=== PATIENT | female | born 1965 | race Hispanic/Latino ===

== ENCOUNTER 2019-05-06 22:27 | Emergency (ER) | payer OTHER ==
--- OUTSIDE RECORDS SUMMARY | 2019-05-06 22:31 | XMS REPORT ---
:1965 [facility] Address [address] [place] [address] Care Team Providers Name Role Phone Unavailable Unavailable Unavailable Payers Payer Name Policy Type Policy Number Effective Date Expiration Date Problems This patient has no known problems. Allergies, Adverse Reactions, Alerts Allergy Name Allergy Status Severity Reaction(s) Onset Inactive Treating Comments Type Date Date Clinician Penicillins DA Active U 05-31 00:00: 00 Sulfa DA Active U (Sulfonamide 2-17 Antibiotics) 00:00: 00 neomycin DA Active U 05-31 00:00: 00 trimethoprim DA Active SV 05-31 00:00: 00 amoxicillin DA Active SV 17 00:00: 00 Medications This patient has no known medications. Encounters Start End Encounter Admission Attending Care Care Encounter Date/Time Date/Time Type Type Clinicians Facility Department ID 2019-02-08 2019-02-08 Emergency E [facility] 23:38:00 23:38:00 2019-02-07 2019-02-07 Outpatient E [facility] MED 7502 10:27:00 10:27:00 Results Test Description Test Time Test Comments Text Results Atomic Results Result Comments DRUGS OF ABUSE SCREEN UR 2019-02-05 11:49:00 Test Item Value Reference Range Comments URN COCAINE (test code=COCAURN) NEGATIVE NEGATIVE URN CANNABINOIDS (test NEGATIVE NEGATIVE code=CANNABURN) URN AMPHETAMINE (test NEGATIVE NEGATIVE code=AMPHETURN) URN BARBITURATE (test NEGATIVE NEGATIVE code=BARBITURN) URN BENZODIAZEPINE (test NEGATIVE NEGATIVE Cut-off value:200 ng/mL code=BENZOURN) URN OPIATES (test code=OPIATURN) NEGATIVE NEGATIVE Cut-off value:2000 ng/mL URN PHENCYCLIDINE (PCP) (test NEGATIVE NEGATIVE Cutoffs:Barbiturates code=PHENCURN) 200 ng/mLBenzodiazepines 200 ng/mLTHC Cannabinoids 50 ng/mLOpiates(Morphine) 2000 ng/mLAmphetamine 1000 ng/mLCocaine 300 ng/mLPCP phencyclidine 25 ng/mL Unconfirmed screening results shouldnot be used for non-medical purposes. UA RFLX MICR CULT IF [id number] 11:40:00 Test Item Value Reference Range Comments UA COLOR (test code=COLU) STRAW YEL/STRAW UA APPEARANCE (test code=APPU) CLEAR CLEAR UA GLUCOSE DIPSTICK (test code=DGLUU) NEGATIVE NEGATIVE UA BILIRUBIN DIPSTICK (test code=BILU) NEGATIVE NEGATIVE UA KETONE DIPSTICK (test code=KETU) NEGATIVE NEGATIVE UA SPECIFIC GRAVITY (test code=SGU) 1.015 1.005-1.030 UA BLOOD DIPSTICK (test code=MOE) NEGATIVE NEGATIVE UA PH DIPSTICK (test code=OTIS) 8.0 5.0-7.0 UA PROTEIN DIPSTICK (test code=PROU) NEGATIVE NEGATIVE UA UROBILINIOGEN DIPSTICK (test code=URO) 0.2 mg/dL 0.2-1.0 UA NITRITE DIPSTICK (test code=PEYTON) NEGATIVE NEGATIVE UA LEUKOCYTE ESTERASE DIPSTICK (test code=LEUU) NEGATIVE NEGATIVE UA WBC (test code=WBCU) 0-3 WBC/HPF 0-3 UA RBC (test code=RBCU) 0-1 RBC/HPF 0-3 UA WBC NO REFLEX (test code=WBCUCL) 0-3 WBC/HPF 0-3 UA BACTERIA (test code=BACU) TRACE /HPF NONE SEEN UA SQUAMOUS CELLS (test code=SQU) 6-10 /HPF NONE SEEN Indication for culture: Temperature > 100.4 FSpecimen Description: CLEAN CATCHB-TYPE NATRIURETIC [id number] 10:59:00 Test Item Value Reference Range Comments B-TYPE NATRIURETIC PEPTIDE (test code=BNP) 10.3 PG/ML 0-100 - XR ANKLE 3 + V [id number] 10:36:00 FAX: Melissa Barber [place]: St: REG FAX: Remberto Whitehead MD [phone] -- Name: ALESHA CRUZ [facility] : 1965 Age/S: 53/F [address] [place] [address] Unit #: [id number] Loc: [address] [address] Phys: Remberto Whitehead MD Acct: [id number] Dis Date: Status: REG ER PHONE #: [phone] Exam Date: 02/05/2019 1025 FAX #: [phone] Reason: ankle pain, swelling EXAMS: CPT CODE: [id number] XR ANKLE 3 + [place] [address] Left ankle radiograph February 05, 2019 1014 hours. COMPARISON: None. CLINICAL HISTORY: Ankle pain and swelling. Discussion: AP lateral and oblique view of the left ankle submitted on 3 images. No fracture or dislocation seen. A metallic screw is seen in the calcaneus. A well circumscribed 2.5 mm lucency is seen in the left lateral malleolus, probably postsurgical. Correlate with prior surgical history. Visualized soft tissues within normal limits. IMPRESSION : 1. No acute osseous abnormality seen. 2. Metallic screw is seen in the calcaneus. 3. 2.5 mm well-circumscribed lucency seen in the left lateral malleolus, probably postsurgical. at 1036 Reported and signed by: Lynda Gonzales M.D. CC: Melissa Guerra MD; Remberto Whitehead MD Technologist : RT Ameena(R) Trnscrd Date/Time/By: 02/05/2019 (1326) : By: Regulo Orig Print D/T: S: 02/05/2019 (5447) PAGE 1 Signed ReportBASIC METABOLIC [id number] 10: 30:00 Test Item Value Reference Range Comments SODIUM (test code=NA) 141 mEq/L 134-147 POTASSIUM (test code=K) 3.8 mEq/L 3.4-5.0 CHLORIDE (test code=CL) 106 mEq/L 100-108 CARBON DIOXIDE (test code=CO2) 28 mEq/L 21-33 ANION GAP (test code=GAP) 11 0-20 GLUCOSE (test code=GLU) 83 mg/dL 70-110 BLOOD UREA NITROGEN (test 7 mg/dL 7-18 code=BUN) GLOMERULAR FILTRATION RATE 103.8 90-95 Units of measure=ml/min/1.73 (test code=GFR) m2 CREATININE (test code=CREAT) 0.6 mg/dL 0.6-1.3 CALCIUM (test code=CA) 8.6 mg/dL 8.0-10.5 CREATINE KINASE (CK)2019-02-05 10:30:00 Test Item Value Reference Range Comments CREATINE KINASE (CK) (test 51 35-232 Result is in INTERNATIONAL code=CK) UNITS/LITER [id number] 10:30:00 Test Item Value Reference Range Comments LIPASE (test code=LIP) 36 IUnit/L 73-393 [id number] 10:30:00 Test Item Value Reference Range Comments MAGNESIUM (test code=MAG) 1.90 mg/dL 1.8-2.4 THYROID STIMULATING [id number] 10:30:00 Test Item Value Reference Range Comments THYROID STIMULATING HORMONE (test 0.58 0.42-5.47 Results in rony- International code=TSH) Units/mL [id number] 10:30:00 Test Item Value Reference Range Comments TROPONIN-I (test < 0.015 ng/mL 0.000-0.045 Negative: <=0.045 code=TROPI) Positive: >=0.046 Correlation with serial results, other cardiac markers andclinical findings is necessary to determine the clinicalsignificance of this result. Results using different methodologies should not be comparedto one another as quantitative results may vary by method. [id number] 10:30:00 Test Item Value Reference Range Comments ACETAMINOPHEN (test code=ACET) < 2 ug/mL 02-10 [id number] 10:30:00 Test Item Value Reference Range Comments SALICYLATE (test code=MARNI) < 1.7 mg/dL 2.8-20.0 [id number] 10:30:00 Test Item Value Reference Range Comments ALCOHOL (test code=ALC) < 0.003 G/dL <0.003 Ethyl Alcohol Interpretation: 0.100 gm/dL - Legally Intoxicated 0.300-0.400 gm/dL - Severely Intoxicated >0.400 gm/dL - Potentially LethalResults are for Medical purposes only, and not for Legal orEmployment evaluation purposes. BASIC METABOLIC [id number] 10:17:00 Test Item Value Reference Range Comments SODIUM (test code=NA) 141 mEq/L 134-147 POTASSIUM (test code=K) 3.8 mEq/L 3.4-5.0 CHLORIDE (test code=CL) 106 mEq/L 100-108 CARBON DIOXIDE (test code=CO2) 28 mEq/L 21-33 ANION GAP (test code=GAP) 11 0-20 GLUCOSE (test code=GLU) 83 mg/dL 70-110 BLOOD UREA NITROGEN (test 7 mg/dL 7-18 code=BUN) GLOMERULAR FILTRATION RATE 103.8 90-95 Units of measure=ml/min/1.73 (test code=GFR) m2 CREATININE (test code=CREAT) 0.6 mg/dL 0.6-1.3 CALCIUM (test code=CA) 8.6 mg/dL 8.0-10.5 CREATINE KINASE (CK)2019-02-05 10:17:00 Test Item Value Reference Range Comments CREATINE KINASE (CK) (test 51 35-232 Result is in INTERNATIONAL code=CK) UNITS/LITER [id number] 10:17:00 Test Item Value Reference Range Comments LIPASE (test code=LIP) 36 IUnit/L 73-393 [id number] 10:17:00 Test Item Value Reference Range Comments MAGNESIUM (test code=MAG) 1.90 mg/dL 1.8-2.4 THYROID STIMULATING [id number] 10:17:00 Test Item Value Reference Range Comments THYROID STIMULATING HORMONE (test code=TSH) 0.42-5.47 [id number] 10:17:00 Test Item Value Reference Range Comments TROPONIN-I (test < 0.015 ng/mL 0.000-0.045 Negative: <=0.045 code=TROPI) Positive: >=0.046 Correlation with serial results, other cardiac markers andclinical findings is necessary to determine the clinicalsignificance of this result. Results using different methodologies should not be comparedto one another as quantitative results may vary by method. [id number] 10:17:00 Test Item Value Reference Range Comments ACETAMINOPHEN (test code=ACET) ug/mL 10-30 [id number] 10:17:00 Test Item Value Reference Range Comments SALICYLATE (test code=MARNI) < 1.7 mg/dL 2.8-20.0 [id number] 10:17:00 Test Item Value Reference Range Comments ALCOHOL (test code=ALC) < 0.003 G/dL <0.003 Ethyl Alcohol Interpretation: 0.100 gm/dL - Legally Intoxicated 0.300-0.400 gm/dL - Severely Intoxicated >0.400 gm/dL - Potentially LethalResults are for Medical purposes only, and not for Legal orEmployment evaluation purposes. [id number] 10:11:00 Test Item Value Reference Range Comments D-DIMER (test 318 ng/mlFEU <=500 THROMBOSIS AND/OR PULMONARY code=DDIMER) EMBOLISM AND THE CLINICAL CUT- OFF VALUE FOR EXCLUSION (500 ng/mL FEU) OF THESE CONDITIONSIS VALIDATED BY THE CHIEF STRATEGY OFFICER OF THE METHOD. A NEGATIVE D-DIMER RESULT WHEN COMBINED WITH A CLINICALASSESSMENT OF LOW PRETEST PROBABILITY HAS BEEN SHOWN TO HAVEA HIGH NEGATIVE PREDICTIVE VALUE OF DVT OR PE. D-DIMER VALUES >500 ng/mL FEU ARE NOT DIAGNOSTIC FOR DVT, PEor DIC WITHOUT OTHER CONFIRMATORY TESTS AND APPROPRIATECLINICAL EUALUATIONS. - CT HEAD/BRAIN W/O [id number] 10:05:00 Name: NANCYALESHAYvon KELLER [facility] : 1965 Age/S: 53 / F [address] [place] [address] Unit #: [id number] Loc: [place] [id number] Phys: Remberto Whitehead MD Acct: [id number] Dis Date: Status: REG ER PHONE #: [phone] Exam Date: 0943 FAX #: [phone] Reason: HEADACHE, HX OF BRAIN PROBLEMS EXAMS: CPTCODE: [id number] CT HEAD/BRAIN W/O CONT 14203 STUDY: - CT HEAD/BRAIN W/O CONT 02/05/2019 9:12 AM Ordering Physician: Remberto Whitehead MD Patient Name: ALESHA CRUZ MR: [id number] : 1965; Age: 53 years y/o Female Clinical Indication: HEADACHE, HX OF BRAIN PROBLEMS Comparison: May CT TECHNIQUE: Multiple contiguous transaxial noncontrast CT images were obtained through the head. Coronal and sagittal reformatted images were prepared. DOSE: CT imaging performed at this location utilizes radiation dose optimization technique whichincludes one or more of the followin) Automated exposure control; 2) Adjustment of the mA and/or kV according to patient' s size; 3) Use of iterative reconstruction techniques. 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 No evidence of acute intracranial hemorrhage, mass lesion, mass effect, midline shift, or extra-axial fluid collection. VENTRICLES: The lateral ventricles, third ventricle, fourth ventricle, and basilar cisterns are appropriate for degree of atrophy present. PARANASAL SINUSES: The visualized portions of the paranasal sinuses are clear. MASTOIDS: Clear. ORBITS: The visualized portions of the orbits are normal. SOFT TISSUES: No significant abnormality. SKULL: No acute fracture or suspicious osseous lesion. PAGE 1 Signed Report (CONTINUED) Name: ALESHA CRUZ [facility] : 1965 Age/S: 53 / F [address] [place], [place] [address] Unit #: [id number] Loc: [place] [address] Phys:Remberto Whitehead MD Acct: [id number] Dis Date: Status: REG ER PHONE #: [phone] Exam Date: 02/05/2019 0943 FAX #: [phone] Reason: HEADACHE, HX OF BRAIN PROBLEMS EXAMS: CPT CODE: [id number] CT HEAD/BRAIN W/O CONT 28622 <Continued> IMPRESSION: No acute intracranial abnormality. SL: [id number] Electronically Signed by Monico Todd on 2018 at 1005 Reported and signed by: Josesito Todd M.D. CC: Melissa Guerra MD; Remberto Whitehead MD Technologist:Ulysses Mora, RT(R)(CT); Sander CTDI: DLP: Trnscb Date/Time: 02/05/2019 (1005) [email or web address] Orig Print D/T: S : 02/05/2019 (6406) PAGE 2 Signed ReportCBC W/AUTO [id number] 09:58:00 Test Item Value Reference Range Comments WHITE BLOOD CELL (test code=WBC) 8.36 x10 3/uL 4.5-11.0 RED BLOOD CELL (test code=RBC) 3.72 x10 6/uL 3.54-5.02 HEMOGLOBIN (test code=HGB) 11.6 g/dL 11.0-15.0 HEMATOCRIT (test code=HCT) 35.5 % 33.0-45.0 MEAN CELL VOLUME (test code=MCV) 95.4 fL 81.0-99.0 MEAN CELL HGB (test code=MCH) 31.2 pg 27.0-33.0 MEAN CELL HGB CONCETRATION (test code=MCHC) 32.7 g/dL 33.0-37.0 RED CELL DISTRIBUTION WIDTH CV (test code=RDW) 13.7 % 11.5-14.5 RED CELL DISTRIBUTION WIDTH SD (test 48.3 fL 37.0-54.0 code=RDW-SD) PLATELET COUNT (test code=PLT) 412 x10 3/uL 150-400 MEAN PLATELET VOLUME (test code=MPV) 10.0 fL 7.0-9.0 NEUTROPHIL % (test code=NT%) 66.4 % 56.0-77.0 IMMATURE GRANULOCYTE % (test code=IG%) 0.2 % 0.0-2.0 LYMPHOCYTE % (test code=LY%) 25.2 % 14.0-32.0 MONOCYTE % (test code=MO%) 6.8 % 4.8-9.0 EOSINOPHIL % (test code=EO%) 0.6 % 0.3-3.7 BASOPHIL % (test code=BA%) 0.8 % 0.0-2.0 NUCLEATED RBC % (test code=NRBC%) 0.0 % 0-0 NEUTROPHIL # (test code=NT#) 5.54 x10 3/uL 2.0-7.6 IMMATURE GRANULOCYTE # (test code=IG#) 0.02 x10 3/uL 0.00-0.03 LYMPHOCYTE # (test code=LY#) 2.11 x10 3/uL 1.0-3.8 MONOCYTE # (test code=MO#) 0.57 x10 3/uL 0.1-0.8 EOSINOPHIL # (test code=EO#) 0.05 x10 3/uL 0.0-0.2 BASOPHIL # (test code=BA#) 0.07 x10 3/uL 0.0-0.2 NUCLEATED RBC # (test code=NRBC#) 0.00 x10 3/uL 0.0-0.1 MANUAL DIFF REQUIRED (test code=MDIFF) NO - XR CHEST 1 [id number] 09:21:00 FAX: Melissa Barber [place]: St: PRE FAX: Remberto Whitehead MD [phone] --- Name: ALESHA CRUZ KELLER [facility] : 1965 Age/S: 53/F [address] [place] [address] Unit #: [id number] Loc: [address] [address] Phys: Remberto Whitehead MD Acct: [id number] Dis Date: Status: PRE ER PHONE #: [phone] Exam Date: 02/05/2019913 FAX #: [phone] Reason: Chest Pain EXAMS: CPT CODE: [id number] XR CHEST 1 V 02396 CLINICAL HISTORY:Chest Pain COMPARISON:May 08, 2016 Frontal film of the chest performed at 0906 on February 05, 2019 demonstrates monitor leads and artifact secondary to garment. Heart size is normal and lung valladares are clear. There is no evidence of pneumonia or congestive failure. Regional skeletal structures demonstrate no acute abnormality. IMPRESSION: No evidence of pneumonia or congestive failure is seen. at 0996 Reported and signed by: Vinod Mcmahon M.D. CC: Melissa Guerra MD; Remberto Whitehead MD Technologist: RT Tawanda(Srikanth) Trnscrd Date/Time/By: 02/05/2019 (0953) : By: MechelleYOS Orig Print D/T: S: 02/05/2019 (4413) PAGE 1 Signed Report
[2019-05-06 23:44] LABS: Absolute Lymphocytes (CBC) 2.1 K/uL (0.7-4.9); Basophils % 0.9 % (0-1.3); Hematocrit 38.4 % (36.0-45.0); Lymphocytes % 24.1 % (15.3-44.8); MPV 7.8 fL (7.6-11.3); RBC Red Blood Cell Count 4.16 M/uL (3.86-4.86)
[2019-05-06 23:47] LABS: Protime INR 1.11
[2019-05-07 00:03] LABS: ALT/SGPT 25 U/L (12-78); AST/SGOT 17 U/L (15-37); Albumin 3.2 g/dL (3.4-5.0); Alkaline Phosphatase 87 U/L (45-117); BUN Blood Urea Nitrogen 17 mg/dL (7-18); Bicarbonate 29 mmol/L (21-32); Bilirubin Direct < 0.1 mg/dL (0-0.2); Bilirubin Total 0.2 mg/dL (0.2-1.0); Glucose Level 104 mg/dL (74-106); Magnesium 2.1 mg/dL (1.8-2.4); NT PRO-BNP 94 pg/mL (<125); Protein, Total 7.8 g/dL (6.4-8.2); Sodium Level 140 mmol/L (136-145); Troponin (Emerg Dept Use Only) < 0.02 ng/mL (0.0-0.045)
--- NOTE | 2019-05-07 00:16 | ER ---
Nurse's Notes [facility] Name: Elif Friend Age: 53 yrs Sex: Female : 1965 Arrival Date: 05/06/2019 Time: 22:31 Bed 7 Private MD: Diagnosis: Chest pain, unspecified;Cough Presentation: 05/06 22:41 Presenting complaint: EMS states: Picked up patient from [facility], called because lp1 she was under the impression it was [facility]; diagnosed with Bronchitis; patient states "I still need to rest, I was released to early from the hospital"; States feeling hot, pain to left ankle. Transition of care: patient was not received from another setting of care. Onset of symptoms was May 06, 2019. Risk Assessment: Do you want to hurt yourself or someone else? Patient reports no desire to harm self or others. Initial Sepsis Screen: Does the patient meet any 2 criteria? No. Patient's initial sepsis screen is negative. Does the patient have a suspected source of infection? No. Patient's initial sepsis screen is negative. Care prior to arrival: None. 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 - Social history:: Smoking status: Patient denies any tobacco usage or history of. - Ebola Screening: : No symptoms or risks identified at this time. Screenin:48 Abuse screen: Denies threats or abuse. Denies injuries from another. Nutritional lp1 screening: No deficits noted. Tuberculosis screening: No symptoms or risk factors identified. Fall Risk None identified. Assessment: 23:25 General: Appears in no apparent distress. uncomfortable, Behavior is calm, cooperative, jd3 appropriate for age. Pain: Complains of pain in chest Pain radiates to left lateral anterior chest Pain began suddenly. Neuro: Level of Consciousness is awake, alert, obeys commands, Oriented to person, place, time, situation. Cardiovascular: Heart tones S1 S2 present Capillary refill < 3 seconds Patient's skin is warm and dry. Rhythm is regular. Respiratory: Reports cough that is Airway is patent Respiratory effort is even, unlabored, Respiratory pattern is regular, symmetrical, Breath sounds are clear bilaterally. GI: No signs and/or symptoms were reported involving the gastrointestinal system. Patient currently denies diarrhea, nausea, vomiting. : No signs and/or symptoms were reported regarding the genitourinary system. EENT: No signs and/or symptoms were reported regarding the EENT system. Derm: Skin is intact, Skin is dry, Skin is normal, Skin temperature is warm. Musculoskeletal: Circulation, motion, and sensation intact. Range of motion: intact in all extremities. 05/07 00:15 Reassessment: Patient appears in no apparent distress at this time. No changes from j previously documented assessment. Patient and/or family updated on plan of care and expected duration. Pain level reassessed. Patient is alert, oriented x 3, equal unlabored respirations, skin warm/dry/pink. provider at bedside discussing plan of care. 00:35 Reassessment: Patient appears in no apparent distress at this time. Patient and/or jd3 family updated on plan of care and expected duration. Pain level reassessed. Patient is alert, oriented x 3, equal unlabored respirations, skin warm/dry/pink. pt reported understanding of discharge instructions. assisted pt to lobby to call and wait for a ride. Vital Signs: 05/06 22:48 BP 139 / 76; Pulse 85; Resp 18; Temp 98.2(O); Pulse Ox 97% on R/A; Weight 63.5 kg; lp1 Height 5 ft. 2 in. (157.48 cm); Pain 8/10; 05/07 00:34 BP 154 / 74; Pulse 67; Resp 17 S; Pulse Ox 98% on R/A; jd3 05/06 22:48 Body Mass Index 25.61 (63.50 kg, 157.48 cm) lp1 ED Course: 05/06 22:31 Patient arrived in ED. cf2 22:46 Triage completed. lp1 22:46 Arm band placed on. lp1 22:47 [facility]C [facility]. la1 22:47 Johnnie Serrano MD is Attending Physician. la1 22:51 Patient maintains SpO2 saturation greater than 95% on room air. lp1 23:14 Paresh Almeida, RN is Primary Nurse. jd3 23:26 Patient has correct armband on for positive identification. Placed in gown. Bed in low jd3 position. Call light in reach. Side rails up X2. vehicle monitor technician on. Pulse ox on. NIBP on. 23:38 Inserted saline lock: 20 gauge in left forearm, using aseptic technique. Blood jd3 collected. 23:52 Chest Pa And Lat (2 Views) XRAY In Process Unspecified. EDMS 05/07 00:36 No provider procedures requiring assistance completed. IV discontinued, intact, jd3 bleeding controlled, No redness/swelling at site. Pressure dressing applied. Administered Medications: No medications were administered Outcome: 00:15 Discharge ordered by . la1 00:36 Discharged to home via wheelchair. jd3 00:36 Condition: stable 00:36 Discharge instructions given to patient, Instructed on discharge instructions, follow up and referral plans. Demonstrated understanding of instructions, follow-up care. 00:36 Patient left the ED. jd3 Signatures: Dispatcher [employer] EDIL Elif De Santiago, JYOTI MONTES lp1 Blake Thomas FNP-C MEDICAL BILLING CLERK-Cla1 Paresh Almeida RN RN jd3 [facility]
--- NOTE | 2019-05-07 00:17 | EDPHYS ---
Physician Documentation [facility] Name: Elif Friend Age: 53 yrs Sex: Female : 1965 Arrival Date: 05/06/2019 Time: 22:31 Bed 7 Private MD: ED Physician Johnnie Serrano HPI: 05/06 23:17 This 53 yrs old Female presents to ER via Wheelchair with complaints of Cough, la1 Chest Pain, Ankle Swelling. 23:17 The patient or guardian reports cough, that is intermittent, described as mild. Onset: la1 The symptoms/episode began/occurred 5 day(s) ago. Severity of symptoms: At their worst the symptoms were mild. Associated signs and symptoms: Pertinent negatives: fever, rhinorrhea, sore throat. The patient has experienced a previous episode. pt was discharged from [facility] at 2000 today, [facility] in [place] but started to feel anxious when she got there and was concerned she was not going to have a place to be during the day from 8-5. Pt also reports pain in MAXINE ankles from old injuries. . 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 - Social history:: Smoking status: Patient denies any tobacco usage or history of. - Ebola Screening: : No symptoms or risks identified at this time. ROS: 23:20 Constitutional: Negative for fever, chills, and weight loss, Eyes: Negative for injury, la1 pain, redness, and discharge, ENT: + for sinus pressure Neck: Negative for injury, pain, and swelling, Cardiovascular: Negative for chest pain, palpitations, and edema. 23:20 Abdomen/GI: Negative for abdominal pain, nausea, vomiting, diarrhea, and constipation, Back: Negative for injury and pain, : Negative for injury, bleeding, discharge, and swelling, MS/Extremity: + for MAXINE ankle pain Skin: Negative for injury, rash, and discoloration, Neuro: Negative for headache, weakness, numbness, tingling, and seizure, Allergy/Immunology: Negative for hives, rash, and allergies, Endocrine: Negative for neck swelling, polydipsia, polyuria, polyphagia, and marked weight changes. 23:20 Respiratory: Positive for cough. Exam: 23:20 Constitutional: This is a well developed, well nourished patient who is awake, alert, la1 and in no acute distress. Head/Face: Normocephalic, atraumatic. Eyes: Pupils equal round and reactive to light, extra-ocular motions intact. Lids and lashes normal. Conjunctiva and sclera are non-icteric and not injected. Cornea within normal limits. Periorbital areas with no swelling, redness, or edema. ENT: Nares patent. No nasal discharge, no septal abnormalities noted. Tympanic membranes are normal and external auditory canals are clear. Oropharynx with no redness, swelling, or masses, exudates, or evidence of obstruction, uvula midline. Mucous membranes moist. Neck: Trachea midline, no thyromegaly or masses palpated, and no cervical lymphadenopathy. Supple, full range of motion without nuchal rigidity, or vertebral point tenderness. No Meningismus. Chest/axilla: Normal chest wall appearance and motion. Nontender with no deformity. No lesions are appreciated. Cardiovascular: Regular rate and rhythm with a normal S1 and S2. No gallops, murmurs, or rubs. Normal PMI, no JVD. No pulse deficits. Respiratory: Lungs have equal breath sounds bilaterally, clear to auscultation Abdomen/GI: Soft, non-tender, with normal bowel sounds. Back: No spinal tenderness. No costovertebral tenderness. Full range of motion. MS/ Extremity: Pulses equal, no cyanosis. Neurovascular intact. Full, normal range of motion. Neuro: Awake and alert, GCS 15, oriented to person, place, time, and situation. Normal gait. Vital Signs: 22:48 BP 139 / 76; Pulse 85; Resp 18; Temp 98.2(O); Pulse Ox 97% on R/A; Weight 63.5 kg; lp1 Height 5 ft. 2 in. (157.48 cm); Pain 8/10; 05/07 00:34 BP 154 / 74; Pulse 67; Resp 17 S; Pulse Ox 98% on R/A; jd3 05/06 22:48 Body Mass Index 25.61 (63.50 kg, 157.48 cm) lp1 MDM: 05/06 22:53 Patient medically screened. [facility] 05/07 00:14 Data reviewed: vital signs, nurses notes, lab test result(s), EKG, radiologic studies, la1 I have discussed the patient's presentation/case with the attending Emergency Department Physician; and as a result, I will discharge patient. Data interpreted: Pulse oximetry: on room air is 98 %. Interpretation: normal. Counseling: I had a detailed discussion with the patient and/or guardian regarding: the historical points, exam findings, and any diagnostic results supporting the discharge/admit diagnosis, the presence of at least one elevated blood pressure reading (>120/80) during this emergency department visit, lab results, the need for outpatient follow up, a family practitioner, to return to the emergency department if symptoms worsen or persist or if there are any questions or concerns that arise at home. Special discussion: Based on the history and exam findings, there is no indication for further emergent testing or inpatient evaluation. I discussed with the patient/guardian the need to see the primary care provider for further evaluation of the symptoms. 05/06 23:22 Order name: Troponin (emerg Dept Use Only); Complete Time: 00:05 05/06 23:22 Order name: Basic Metabolic Panel; Complete Time: 00:05 05/06 23:22 Order name: CBC with Diff; Complete Time: 00:05 05/06 23:22 Order name: LFT's; Complete Time: 00:05 05/06 23:22 Order name: Magnesium; Complete Time: 00:05 05/06 23:22 Order name: NT PRO-BNP; Complete Time: 00:05 05/06 23:10 Order name: Chest Pa And Lat (2 Views) XRAY 05/06 23:10 Order name: EKG; Complete Time: 23:10 05/06 23:10 Order name: EKG - Nurse/Tech; Complete Time: 23:24 05/06 23:22 Order name: PT-INR; Complete Time: 00:05 05/06 23:22 Order name: Cardiac monitoring; Complete Time: : la1 05/06 23:22 Order name: IV Saline Lock; Complete Time: : la1 05/06 23:22 Order name: Labs collected and sent; Complete Time: : la05/06 23:22 Order name: O2 Per Protocol; Complete Time: : la1 05/06 23:22 Order name: O2 Sat Monitoring; Complete Time: : la Administered Medications: No medications were administered Disposition: : Co-signature as Attending Physician, Johnnie Serrano MD I agree with the assessment and randy plan of care. Disposition: 05/07/19 00:15 Discharged to Home. Impression: Chest pain, unspecified, Cough. - Condition is Stable. - Discharge Instructions: Acute Bronchitis, Adult, Nonspecific Chest Pain, Aspirin and Your Heart. - Medication Reconciliation Form, Thank You Letter form. - Follow up: Private Physician; When: 2 - 3 days; Reason: Recheck today's complaints, Re-evaluation by your physician. - Problem is new. - Symptoms are unchanged. Signatures: Dispatcher [employer] EDJohnnie Sutherland MD MD cha Pena, Laura, RN RN lp1 Blake Thomas, FAMILY LITERACY COORDINATOR-C FAMILY LITERACY COORDINATOR-Cla1 Paresh Almeida RN RN jd3 Corrections: (The following items were deleted from the chart) 00:36 00:15 05/07/2019 00:15 Discharged to Home. Impression: Chest pain, unspecified; Cough. jd3 Condition is Stable. Forms are Medication Reconciliation Form, Thank You Letter, Antibiotic Education, Prescription Opioid Use. Follow up: Private Physician; When: 2 - 3 days; Reason: Recheck today's complaints, Re-evaluation by your physician. Problem is new. Symptoms are unchanged. la1
[2019-05-07 00:52] VITALS: TEMP 98.2
[2019-05-07 00:53] VITALS: BP 154/74; O2SAT 98
--- NOTE | 2019-05-07 08:35 | EKG ---
Test Date: 2019-05-06 Test Time: 23:22:06 Management Development Specialist: SANGEETHA MEASUREMENT RESULTS: Intervals: Rate: 80 MD: 132 QRSD: 76 QT: 362 QTc: 417 [place]: P: 48 MD: 132 QRS: 61 T: 22 INTERPRETIVE STATEMENTS: Normal sinus rhythm Normal ECG No previous ECG available for comparison Electronically Signed On 05-07-19 08:34:18 THROW OUT CLERK by Dom Fan
--- NOTE | 2019-05-07 08:52 | RAD REPORT ---
EXAM DESCRIPTION: RAD - Chest Pa And Lat (2 Views) - 05/06/2019 11:52 pm CLINICAL HISTORY: COUGH Chest pain. COMPARISON: No comparisons FINDINGS: The lungs are clear. The heart is mildly enlarged in size. No displaced fractures. IMPRESSION: Mild cardiomegaly.
== END 2019-05-07 00:36 | disposition home or self-care (01) ==
LOC: ER 22:27
DX: R05 Cough (principal); R07.9 Chest pain, unspecified; Z88.1 Allergy status to other antibiotic agents; Z88.0 Allergy status to penicillin; Z88.2 Allergy status to sulfonamides; J40 Bronchitis, not specified as acute or chronic; I25.2 Old myocardial infarction
CPT/HCPCS: 36415; 71046; 80048; 80076; 83735; 83880; 84484; 85025; 85610; 93005; 99285